=== PATIENT | male | born 1990 | race Caucasian/White ===

== ENCOUNTER 2017-01-02 12:29 | Inpatient (IN) | payer BC, OTHER ==
[~2017-01-02] VITALS: Ht 177.8 cm; Wt 68.5 kg
[2017-01-02] MEDS ORDERED: MoRPHine SULFATE 10 MG/ML CARP/VIAL IV STA (12:38)
--- NOTE | 2017-01-02 13:29 | DIAGNOSTIC IMAGING REPORT ---
LEFT TIBIA/FIBULA 2 VIEWS ROUTINE CLINICAL HISTORY: Left leg pain status post trauma COMPARISON: None. DISCUSSION: 4 views are provided for interpretation. The examination is somewhat limited from a technical standpoint. There is a mildly comminuted oblique/spiral fracture of the distal tibia. The distal fracture is laterally displaced x 8 mm. There is a comminuted fracture of the mid fibular shaft. IMPRESSION: 1. Mildly comminuted oblique/spiral fracture distal tibia 2. Comminuted fracture the mid fibular shaft Electronically signed by: Flo Rodriguez M.D. 01/02/2017 1:27 PM Dictated Date/Time: 01/02/2017 1:25 PM
[2017-01-02] MEDS ORDERED: NURSING VERBAL MED ORDER ONE ×2 (14:00→16:10)
[2017-01-02 14:26] LABS: HEMATOCRIT 45.6 % (42-52); MEAN CELL VOLUME 87.7 fL (80-100); MEAN CORPUSCULAR HEMOGLOBIN 31.3 pg (25-34); MEAN CORPUSCULAR HGB CONC 35.7 g/dl (32-36); MEAN PLATELET VOLUME 10.1 fL (7.4-10.4); PLATELET COUNT 265 K/uL (130-400); WHITE BLOOD COUNT 13.88 K/uL (4.8-10.8)
[2017-01-02] MEDS ORDERED: ONDANSETRON INJ 2 MG/ML 2 ML VIAL IV PRN (14:30)
[2017-01-02] MEDS ORDERED: HYDROmorphone INJ 1 MG/ML SYR IV PRN (14:30)
[2017-01-02 14:31] LABS: INR 1.1 (0.9-1.1)
[2017-01-02 14:33] LABS: BUN/CREATININE RATIO 10.4 (10-20); CALCIUM 9.2 mg/dl (8.5-10.1); CREATININE 1.1 mg/dl (0.60-1.40); POTASSIUM 3.2 mmol/L (3.5-5.1)
--- NOTE | 2017-01-02 14:48 | EMERGENCY ROOM VISIT NOTE ---
History Report prepared by Scott: Luzmaria Coley Under the Supervision of: Dr. Kieran Montgomery D.O. First contact with patient: 12:37 Chief Complaint: LEG PAIN,LEG INJURY Stated Complaint: LEG PAIN History of Present Illness The patient is a 26 year old male who presents to the Emergency Room with complaints of persistent left leg pain which started [employer]. The patient currently rates his discomfort as a 10/10. He reports that he was running outside when he encountered some ice. He describes that his "foot stopped, but the rest of me kept going". Source of History: patient Onset: [employer] Position: leg (left) Symptom Intensity: 10/10 Timing: other (persistent) Review of Systems See HPI for pertinent positives & negatives. A total of 10 systems reviewed and were otherwise negative. Past Medical & Surgical Medical Problems: (1) No Known Active Medical Problems Family History Patient reports no known family medical history. Social History Smoking Status: Never Smoker Marital Status: single Occupation Status: employed Current/Historical Medications No Active Prescriptions or Reported Meds Allergies Coded Allergies: Cefaclor (Unverified Allergy, Unknown, unkown, 01/02/17) Sulfamethoxazole w/Trimethoprim (Unverified Allergy, Unknown, unkown, 01/02) Physical Exam Vital Signs Date Time Temp Pulse Resp B/P Pulse Ox O2 Delivery O2 Flow Rate FiO2 01/02/17 14:32 83 18 138/76 100 Room Air 01/02/17 12:32 36.4 93 20 140/102 94 Room Air Physical Exam CONSTITUTIONAL/VITAL SIGNS: Reviewed / noted above. GENERAL: Non-toxic in appearance. INTEGUMENTARY: Warm, dry, and [place]. HEAD: Normocephalic. EYES: without scleral icterus or trauma. ENT/OROPHARYNX: clear and moist. LYMPHADENOPATHY/NECK: Is supple without lymphadenopathy or meningismus. RESPIRATORY: Lungs clear and equal. CARDIOVASCULAR: Regular rate and rhythm. GI/ABDOMEN: Soft and nontender. No organomegaly or pulsatile mass. No rebound or guarding. Normal bowel sounds. EXTREMITIES: Warm and well perfused. Mild deformity to left mid tibial region. No lacerations. Distally neurovascularly intact. BACK: No CVA tenderness. NEUROLOGICAL: Intact without focal deficits. PSYCHIATRIC: normal affect. MUSCULOSKELETAL: Normally developed with good muscle tone. Medical Decision & Procedures ER Provider Diagnostic Interpretation: X ray results and stated below per my interpretation and radiology interpretation. LEFT TIBIA/FIBULA 2 VIEWS ROUTINE CLINICAL HISTORY: Left leg pain status post trauma COMPARISON: None. DISCUSSION: 4 views are provided for interpretation. The examination is somewhat limited from a technical standpoint. There is a mildly comminuted oblique/spiral fracture of the distal tibia. The distal fracture is laterally displaced x 8 mm. There is a comminuted fracture of the mid fibular shaft. IMPRESSION: 1. Mildly comminuted oblique/spiral fracture distal tibia 2. Comminuted fracture the mid fibular shaft Electronically signed by: Flo Rodriguez M.D. 01/02/2017 1:27 PM Dictated Date/Time: 01/02/2017 1:25 PM Laboratory Results 01/02/17 12:40 01/02/17 12:40 Test 01/02/17 12:40 Red Blood Count 5.20 M/uL (4.7-6.1) Mean Corpuscular Volume 87.7 fL (80-100) Mean Corpuscular Hemoglobin 31.3 pg (25-34) Mean Corpuscular Hemoglobin Concent 35.7 g/dl (32-36) RDW Standard Deviation 39.5 fL (36.4-46.3) RDW Coefficient of Variation 12.2 % (11.5-14.5) Mean Platelet Volume 10.1 fL (7.4-10.4) Prothrombin Time 12.0 SECONDS (9.0-12.0) Prothromb Time International Ratio 1.1 (0.9-1.1) Anion Gap 13.0 mmol/L (3-11) Est Creatinine Clear Calc Drug Dose 96.9 ml/min Estimated GFR () 105.3 Estimated GFR (Non- 90.9 BUN/Creatinine Ratio 10.4 (10-20) Calcium Level 9.2 mg/dl (8.5-10.1) Medications Administered Medications (Trade) Dose Ordered Sig/Mary Route Start Time Stop Time Status Last Admin Dose Admin Morphine Sulfate (MoRPHine SULFATE INJ) 6 mg NOW STAT IV 01/02/17 12:38 01/02/17 12:40 DC 01/02/17 12:51 6 MG ED Course 1236: Previous medical records were reviewed. The patient was evaluated in room A3. A complete history and physical examination was performed. 1238: Morphine Sulfate 6 mg IV. 1336: I discussed the patients case with Dr. Flores, [facility] - orthopedic surgeon. The patient will be evaluated for further management. 1340: I reevaluated the patient. I discussed the results and treatment plan with him. He expressed understanding and agreement. He will be evaluated for further management. Medical Decision Differential diagnosis: Etiologies such as fracture, dislocation, neurovascular compromise, compartment syndrome, soft tissue injury, as well as others were entertained. This is a 26-year-old male who presents to the ED with a chief complaint of a left leg fracture. The patient states that he was running and slipped on the ice and then his foot caught solid ground and he suddenly heard a pop and pain in his left leg. He presented via personal vehicle. The patient has discomfort in the left leg. He has no other injuries. He is neurovascularly intact distally. There is no obvious open wounds. X-ray shows a tib-fib fracture that is mildly displaced and comminuted as well as spiral fracture. The patient was splinted with a posterior splint and a stirrup splint. The patient will be seen by Dr. Flores from orthopedics. The patient is being admitted for inpatient care. Consults Time Called: 1322 Consulting Physician: Dr. Flores, [facility] - orthopedic surgeon Returned Call: [phone] I discussed the patients case with him. The patient will be evaluated for further management. Impression Primary Impression: Tibia/fibula fracture, shaft Scribe Attestation The scribe's documentation has been prepared under my direction and personally reviewed by me in its entirety. I confirm that the note above accurately reflects all work, treatment, procedures, and medical decision making performed by me. Departure Information Dispostion Being Evaluated By Surgeon Prescriptions No Active Prescriptions or Reported Meds Referrals No Doctor, Assigned (PCP) Patient Instructions [facility]
[2017-01-02 15:00] VITALS: Ht 177.8 cm; Wt 68.5 kg
[2017-01-02] MEDS: OXYCODONE/ACETAMINOPHEN 5-325 TAB PO PRN ×2 (15:01→22:34)
[2017-01-02 16:30] VITALS: BP 126/74; PULSE 69; TEMP 36.4; O2SAT 91
[2017-01-02] MEDS: D5W AND 1/2NSS 1,000 ML IV SCH ×2 (16:33→23:24)
[2017-01-02 17:02] LABS: URINE APPEARANCE CLEAR (CLEAR); URINE BILIRUBIN NEG (NEG); URINE COLOR YELLOW; URINE NITRITE NEG (NEG); URINE PH 6.5 (4.5-7.5); URINE SPECIFIC GRAVITY 1.015 (1.000-1.030); UROBILINOGEN NEG (NEG)
[2017-01-02 17:05] LABS: MANUAL MICROSCOPIC REQUIRED? NO; REVIEW REQ? NO
--- NOTE | 2017-01-02 17:50 | DIAGNOSTIC IMAGING REPORT ---
CT LEFT LOWER LEG NO CONTRAST CT DOSE: 476.88 mGy.cm CLINICAL HISTORY: Fracture tibia and fibula TECHNIQUE: Helical images were acquired in the transverse plane. Sagittal and coronal reformatted images were acquired COMPARISON STUDY: Conventional radiographic study dated 01/02/2017 FINDINGS: There is a comminuted oblique fracture of the distal tibia 7 cm proximal to the tibial plafond. The distal fragment is posterior displaced x 11 mm, and laterally displaced x 10 mm. There is a chip fracture involving the lateral corner of the tibial plafond. There is a nondisplaced fracture involving the posterior malleolus. The ankle mortise appears intact. There is a comminuted fracture of the mid fibular shaft. There is an 8 cm butterfly fragment which is posteriorly displaced x 7 mm. IMPRESSION: 1. Comminuted oblique fracture of the distal tibia. 2. Chip fracture involving the lateral corner the tibial plafond 3. Nondisplaced hairline fracture involving the posterior malleolus the distal tibia 4. Comminuted fracture of the mid fibular shaft. Electronically signed by: Flo Rodriguez M.D. 01/02/2017 5:48 PM Dictated Date/Time: 01/02/2017 5:43 PM
[2017-01-02 18:18] VITALS: O2SAT 91
[2017-01-02] MEDS: HYDROmorphone INJ 1 MG/ML SYR IV PRN (20:17)
[2017-01-02] MEDS: DOCUSATE SODIUM 100 MG CAP PO SCH (20:39)
[2017-01-02 23:14] VITALS: BP 130/78; PULSE 59; TEMP 36.7; O2SAT 98
[2017-01-02] MEDS: [UNRECOGNIZED DRUG - REMARK] SCH (23:25)
[2017-01-03] VITALS (9 sets, daily range): BP systolic 134–146; BP diastolic 73–86; PULSE 52–74; TEMP 36.4–37.1; O2SAT 95–99
[2017-01-03] MEDS: HYDROmorphone INJ 1 MG/ML SYR IV PRN ×7 (03:23→13:32)
[2017-01-03] MEDS: [UNRECOGNIZED DRUG - REMARK] SCH (08:00)
--- NOTE | 2017-01-03 08:57 | HISTORY & PHYSICAL EXAMINATION ---
DATE OF ADMISSION: 01/02/2017 SUBJECTIVE CHIEF COMPLAINT: Left lower leg pain. HISTORY OF PRESENT ILLNESS: This is a patient who was out for run yesterday. When he came in contact with some ice, he tried stopping; however, he had a fall. He has significant pain within the left lower extremity. He was brought to [facility] ER, where x-rays were performed. He was noted to have a distal tibia shaft fracture as well as a comminuted midshaft fibular fracture. He was placed into a splint and he was admitted for surgical evaluation today. PAST MEDICAL HISTORY: None. PAST SURGICAL HISTORY: None. HOME MEDICATIONS: None. FAMILY HISTORY: Noncontributory. SOCIAL HISTORY: The patient is single. He is doing graduate, worked at [employer]. He is a nonsmoker. ALLERGIES: BACTRIM AND CEFACLOR. OBJECTIVE PHYSICAL EXAMINATION: GENERAL: The patient is alert and oriented x3. He is in no acute distress. He is lying fairly comfortable in bed with his left lower extremity elevated in a splint. HEART: Has a regular rhythm and rate without murmurs. Distal cardiovascular exam, cap refill is less than 2 seconds, left lower extremity. LUNGS: Clear to auscultation bilaterally. LYMPHATIC: No evidence of any swollen lymph nodes. MUSCULOSKELETAL: The patient is nonweightbearing on the left lower extremity. As previously noted, he is lying comfortably in bed. No range of motion or strength testing was performed because of a known fracture and the patient being in a splint. Splint was kept in place throughout the exam. NEUROLOGIC: Sensation is normal and intact distally at the left lower extremity toes to light palpation. X-RAY EXAM: Multiple views of the left tib-fib demonstrate a comminuted and displaced distal tibial shaft fracture as well as a comminuted displaced fibular shaft fracture. CT of the left lower extremity demonstrates a comminuted and displaced distal one-third tibia fracture. The fracture appears to be extraarticular. There may be a small avulsion at the lateral aspect of the distal tibia. There is also a displaced comminuted midshaft fibular fracture. ASSESSMENT AND DIAGNOSES: Left displaced tib-fib fracture, both are comminuted and fractures are extraarticular. PLAN: Above assessment was discussed with the patient. At this time, it was recommended the patient undergo an ORIF of left tibial shaft fracture with intramedullary nail and closed treatment of the fibular fracture. All potential risks, benefits, complications, alternatives and rehab have been discussed with the patient. At this time, he wishes to proceed with the surgery as indicated. The patient was consented this morning and it was discussed with the patient that he will be on aspirin 81 mg twice a day over the next 6-8 weeks for DVT prophylaxis and we will continue to follow the patient during his inpatient stay for nonweightbearing on the left lower extremity as well as pain control until he was able to be discharged home. MARK
[2017-01-03] MEDS: DOCUSATE SODIUM 100 MG CAP PO SCH ×2 (09:00→20:47)
[2017-01-03] MEDS ORDERED: BACITRACIN 50000 UNIT VIAL ONE (09:25)
[2017-01-03] MEDS ORDERED: BUPIVACAINE/EPINEPHRINE 0.5% MPF 1:200,000 30 ML VIAL ONE (09:25)
[2017-01-03] MEDS ORDERED: ONDANSETRON INJ 2 MG/ML 2 ML VIAL ONE ×2 (09:54→12:23)
[2017-01-03] MEDS ORDERED: DEXAMETHASONE SOD INJ 4 MG/ML VIAL ONE (09:54)
[2017-01-03] MEDS ORDERED: FENTANYL CITRATE INJ 50 MCG/1 ML 2 ML VIAL ONE ×2 (09:54→12:20)
[2017-01-03] MEDS ORDERED: PROPOFOL IV EMULSION 10 MG/ML 20 ML VIAL IV ONE (09:54)
[2017-01-03] MEDS ORDERED: MIDAZOLAM HCL 1 MG/ML 2ML VIAL ONE (09:54)
[2017-01-03] MEDS ORDERED: LIDOCAINE HCL 2% 2 ML VIAL (20MG/ML) ONE (09:54)
[2017-01-03] MEDS ORDERED: CISATRACURIUM BESYLATE IV SOLN 2 MG/ML 10 ML VIAL ONE (09:54)
[2017-01-03] MEDS ORDERED: CEFAZOLIN SOD 1 GM VIAL ONE ×2 (10:25→10:27)
[2017-01-03] MEDS ORDERED: HYDROmorphone INJ 2 MG/ML SYR/VIAL ONE ×2 (11:08→13:17)
[2017-01-03] MEDS ORDERED: NALOXONE HCL 0.4 MG/1 ML VIAL/CARP IV PRN (12:30)
[2017-01-03] MEDS ORDERED: EpHEDrine SULFATE INJ 50 MG/ML AMP IV PRN (12:30)
[2017-01-03] MEDS ORDERED: FLUMAZENIL 0.1 MG/1 ML 10 ML VIAL IV PRN (12:30)
[2017-01-03] MEDS ORDERED: ATROPINE SULFATE 0.1 MG/ML 5ML SYR IV PRN (12:30)
[2017-01-03] MEDS ORDERED: PROMETHAZINE HCL INJ 12.5 MG in SODIUM CHLORIDE 0.9% 50ML 50 ML IV PRN (12:30)
[2017-01-03] MEDS ORDERED: ONDANSETRON INJ 2 MG/ML 2 ML VIAL IV PRN ×2 (12:30→13:15)
--- NOTE | 2017-01-03 12:49 | [facility] Post Operative Brief Note ---
Immediate Operative Summary Operative Date Jan 03, 2017. Pre-Operative Diagnosis Left displaced distal one-third tib-fib fracture, both are comminuted and fractures are extraarticular. Post-Operative Diagnosis Left displaced distal one-third tib-fib fracture, both are comminuted and fractures are extraarticular. Procedure(s) Performed Open reduction internal fixation left tibial shaft fracture with intramedullary nail, Synthes. Closed treatment left fibular fracture with application splint. Surgeon Dr. Flores [employer] Surgeon(s) Anny Vizcaino PA-C Estimated Blood Loss 50 ML Findings See dict Specimens None Drains None Anesthesia GLMA Complication(s) None Disposition Recovery Room / PACU
--- NOTE | 2017-01-03 12:52 | DIAGNOSTIC IMAGING REPORT ---
INTRAOPERATIVE RADIOGRAPHS CLINICAL HISTORY: Open reduction and internal fixation of the left tibia. Fluoroscopy time: 264 seconds. FINDINGS: 5 spot fluoroscopic views of the left tibia are presented. An intertrochanteric nail transfixes a spiral fracture through the distal tibial shaft. There is mild persistent offset of the fragments. 2 cortical lag screws transfix the proximal end of the nail and 3 cortical-like screws transfix the distal end of the nail. A spiral fracture is also seen in the mid fibular shaft. Overlying soft tissue edema is noted. IMPRESSION: Intraoperative images from open reduction and internal fixation of the left tibia as above. Electronically signed by: Brian Mendoza M.D. 01/03/2017 12:51 PM Dictated Date/Time: 01/03/2017 12:49 PM
[2017-01-03] MEDS ORDERED: GLYCOPYRROLATE INJ 0.2 MG/ML VIAL ONE (12:53)
[2017-01-03] MEDS ORDERED: NEOSTIGMINE METHYLSULFATE 5 MG/5 ML SYR ONE (12:53)
[2017-01-03] MEDS ORDERED: HYDROmorphone INJ 0.5 MG/0.5 ML SYR IV PRN (13:00)
[2017-01-03] MEDS ORDERED: NO NSAIDS SCH (13:15)
[2017-01-03] MEDS ORDERED: SOD PHOSPHATE/SOD BIPHOSPHATE ENEMA 132 ML BTL PR PRN (13:15)
[2017-01-03] MEDS ORDERED: BISACODYL 10 MG SUPP PR PRN (13:15)
[2017-01-03] MEDS ORDERED: ZOLPIDEM TARTRATE 5 MG TAB PO PRN (13:15)
[2017-01-03] MEDS ORDERED: ALUMINUM/MAGNESIUM/SIMETH (MAALOX MAX) 30 ML UDC PO PRN (13:15)
[2017-01-03] MEDS ORDERED: MoRPHine SULFATE 2 MG/ML CARP IV PRN (13:15)
[2017-01-03] MEDS ORDERED: MAGNESIUM HYDROXIDE SUSP 30 ML UDC PO PRN (13:15)
[2017-01-03] MEDS ORDERED: OXYCODONE HCL IR 5 MG TAB (IMMEDIATE RELEASE) PO PRN (13:15)
--- NOTE | 2017-01-03 13:50 | DIAGNOSTIC IMAGING REPORT ---
LEFT TIBIA AND FIBULA 2 VIEWS CLINICAL HISTORY: Postoperative examination. FINDINGS: AP and lateral portable views of the left tibia and fibula are compared to study dated 01/02/2017. The skeletal structures are well mineralized. The examination is performed through a splint, obscuring fine bony detail. An Intramedullary nail transfixes a comminuted spiral fracture of the distal tibia. There is approximately 5 mm of lateral offset of the distal fragments. 2 cortical lag screws transfix the proximal aspect of the nail and 3 cortical lag screws transfix the distal aspect of the nail. A comminuted and distracted spiral fracture of the proximal to mid fibula is again noted. Overlying soft tissue edema is identified. Foci of subcutaneous gas are likely related to recent surgery. The knee and ankle joints are grossly maintained. IMPRESSION: 1. Postoperative changes from open reduction and internal fixation of a left tibial fracture as above. 2. A comminuted spiral fracture of the proximal mid fibular shaft with distracted fragments is again noted. Electronically signed by: Brian Mendoza M.D. 01/03/2017 1:49 PM Dictated Date/Time: 01/03/2017 1:46 PM
--- NOTE | 2017-01-03 13:52 | Anesthesiology Progress Note ---
Anesthesia Post Op Note Date & Time Jan 03, 2017 at 13:52 Vital Signs Pain Intensity: 4 Vital Signs Past 12 Hours Date Time Temp Pulse Resp B/P Pulse Ox O2 Delivery O2 Flow Rate FiO2 01/03/17 13:45 37.6 68 16 158/79 99 Nasal Cannula 2 01/03/17 13:35 63 16 150/87 99 Nasal Cannula 2 01/03/17 13:25 62 16 165/90 99 Nasal Cannula 2 01/03/17 13:15 73 16 146/83 100 Mask 10 01/03/17 13:05 73 16 153/73 99 Mask 10 01/03/17 12:59 37.2 84 14 148/83 99 Mask 10 01/03/17 07:45 Room Air 01/03/17 07:16 36.6 60 16 134/73 96 Room Air Notes Mental Status: alert / awake / arousable, participated in evaluation Pt Amnestic to Procedure: Yes Nausea / Vomiting: adequately controlled Pain: adequately controlled Airway Patency, RR, SpO2: stable & adequate BP & HR: stable & adequate Hydration State: stable & adequate Anesthetic Complications: no major complications apparent
[2017-01-03] MEDS: D5W AND 1/2NSS + 20MEQ KCL 1,000 ML IV SCH ×2 (14:16→22:44)
[2017-01-03] MEDS: ACETAMINOPHEN 500 MG TAB PO SCH ×2 (15:30→23:47)
[2017-01-03] MEDS: CEFAZOLIN IV 1,000 MG in DEXTROSE 5% 50ML 50 ML IV SCH (17:31)
[2017-01-03] MEDS: ASPIRIN 81 MG ECTAB PO SCH (20:47)
[2017-01-03] MEDS ORDERED: SENNA 8.6 MG TAB PO SCH (21:00)
[2017-01-04] MEDS: CEFAZOLIN IV 1,000 MG in DEXTROSE 5% 50ML 50 ML IV SCH (01:48)
[2017-01-04 04:00] VITALS: BP 136/64; PULSE 84; TEMP 36.7; O2SAT 94
[2017-01-04 05:31] LABS: HEMATOCRIT 38.7 % (42-52); MEAN CORPUSCULAR HEMOGLOBIN 30.4 pg (25-34); MEAN CORPUSCULAR HGB CONC 35.4 g/dl (32-36); MEAN PLATELET VOLUME 9.4 fL (7.4-10.4); PLATELET COUNT 209 K/uL (130-400)
[2017-01-04 06:02] LABS: BUN/CREATININE RATIO 7.1 (10-20); CALCIUM 8.3 mg/dl (8.5-10.1); POTASSIUM 3.8 mmol/L (3.5-5.1)
--- NOTE | 2017-01-04 07:11 | OPERATIVE REPORT ---
DATE OF OPERATION: 01/03/2017 PREOPERATIVE DIAGNOSIS: Left displaced distal one-third comminuted tibia and fibular fracture, extra-articular. POSTOPERATIVE DIAGNOSIS: Same. PROCEDURES: 1. Intramedullary nailing, ORIF of left tibia fracture, Synthes tibial nail. 2. Closed treatment of left fibula fracture with application of splint. SURGEON: Dr. Flores. CAB DRIVER: Min Vizcaino PA-C who was present for patient positioning, sterile prep and drape, management of retractors and instruments. He was present through the critical portions of the case including wound closure, application of sterile dressing and transport of the patient to recovery. ANESTHESIA: General LMA. SPECIMENS: None. DRAINS: None. COMPLICATIONS: None. BLOOD LOSS: 50 mL. 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 He slipped on some ice and wrenched and twisted his left leg severely. He felt a snap and immediate pain, unable to ambulate, noticed deformity of the limb and then transported to [facility], at which point he was x-rayed and evaluated and noted to have right distal one-third closed comminuted tibia and fibula fracture. He was then admitted to orthopedics for definitive care and management as indicated. All potential risks, benefits, complications, alternatives, rehab, potential for incomplete relief of symptoms, need for further surgery, DVT, PE, , persistent pain, swelling, scarring, weakness, neurovascular injury, wound complications, hardware failure, bone fracture, nonunion or malunion was discussed with the patient. The patient decided to proceed with the procedure as indicated. PROCEDURE IN DETAIL: The patient was taken to the operative suite, placed supine on the operating room table. After review of the consent and identification of proper operative site, the patient was anesthetized, LMA was placed. Tourniquet was placed high on the left thigh over cast padding. Left lower extremity was then sterilely prepped and draped in usual fashion, elevated and exsanguinated with Esmarch bandage and tourniquet inflated to 300 mmHg. Next, a 15 blade scalpel was used to make an incision in the anterior aspect of the left knee. The incision was deepened through subcutaneous tissue. Meticulous hemostasis was achieved with electrocautery. Full thickness skin flaps were developed. The paratenon of the patellar tendon was incised in line with skin incision, retracted, and protected. Next, a medial parapatellar incision was made and the patella was then retracted laterally. Next, the fat pad was then incised and the proximal anterior lip of the tibia was identified. Next, the guidepin was placed under live fluoroscopic assistance into the proximal one-third of the tibia. Next, an awl was used to open the proximal tibia and then a ball-tipped guidewire was then carefully bent with a plier and then placed in a T-handle vanessa and then used to pass the guidewire across the fracture site into the distal fragment in a center-center position on AP and lateral projections with the C-arm. Next, sequential reaming was performed up to a size 11 through both portions of the fracture, 11.5 to the level of proximal isthmus and then a 12.5 reamer was passed into the tibial plateau region. Next, the wound and tibial shaft was then copiously irrigated with sterile normal saline and bacitracin. Next, the 11 mm x 345 mm Synthes cannulated titanium tibial nail was then passed across the fracture to stabilize it. Of note, a large bone reduction tenaculum forceps was used to hold the fracture reduced at the fracture site via 2 small stab incisions, medial and lateral with a 15 blade scalpel. This was performed prior to the initiation of reaming. The screw was well seated on AP and lateral projections in the center-center position. The anterior proximal targeting alignment guide was then placed onto the insertion guide. Next, stab incisions were made at the proximal medial aspect of the tibia and then locking screws were drilled and then passed across the proximal tibia. Next, the targeting alignment guide was then removed and a 15 mm nail plug was placed proximally. Next, using a freehand technique, live fluoroscopic images were used to localize for stab incisions in the medial aspect of the distal tibia, for placement of 2 medial to lateral locking screws and then 1 oblique anteromedial to posterolateral locking screw. Next, final x-rays obtained, noting near anatomic reduction of the tibia and stable alignment and rotation of the fibula. Next, all wounds were then copiously irrigated with sterile normal saline. The deep capsule was closed using several #1 Vicryl sutures. The medial retinaculum was then closed using #1 Vicryl and the paratenon was then closed using 3-0 Vicryl, followed by closure of the skin with buried interrupted 2-0 Vicryl in all skin incisions and then the skin was then completely closed with 4-0 nylon sutures. Next, a sterile compressive dressing was applied as well as a well-padded plaster splint to help stabilize soft tissue and also to treat the closed fracture of the fibula. The tourniquet was released. The patient was awakened and taken to recovery in stable condition. I attest to the content of the Intraoperative Record and any orders documented therein. Any exceptio ns are noted below.
[2017-01-04 07:17] VITALS: BP 135/74; PULSE 67; TEMP 36.6; O2SAT 94
--- NOTE | 2017-01-04 07:42 | Orthopedic Progress Note ---
Orthopedic Progress Note Date of Service Jan 04, 2017. Subjective Post OP Day: 1 Reports: feeling well, pain controlled w PO medications, Denies: complaints Additional Notes: States the left leg is feeling surprisingly better from prior to surgery. The sensation is back in his leg and he can move his toes. Some discomfort near the knee but he feels it's more positional with the leg being elevated. Objective calves soft nontender, N/V intact, splint C/D/I, capillary refill less than 2 sec., dressing C/D/I, A&O x3, toes mobile Date Time Temp Pulse Resp B/P Pulse Ox O2 Delivery O2 Flow Rate FiO2 01/04/17 07:17 36.6 67 18 135/74 94 Room Air 01/04/17 04:00 36.7 84 16 136/64 94 Room Air 01/03/17 23:45 Room Air 01/03/17 22:44 36.4 62 16 142/81 98 Room Air 01/03/17 20:56 36.5 68 16 136/82 97 Room Air 01/03/17 17:05 52 16 138/86 95 Room Air 01/03/17 16:23 36.5 74 16 137/76 99 Nasal Cannula 2.0 01/03/17 15:45 97 Nasal Cannula 2.0 01/03/17 15:14 36.7 74 16 143/81 97 Nasal Cannula 2.0 01/03/17 14:48 36.5 56 16 145/80 98 2.0 01/03/17 14:10 Nasal Cannula 2.0 01/03/17 14:10 37.1 67 16 146/75 99 Nasal Cannula 2.0 01/03/17 14:10 Nasal Cannula 2.0 01/03/17 13:55 37.6 74 16 147/87 98 Nasal Cannula 2 01/03/17 13:45 37.6 68 16 158/79 99 Nasal Cannula 2 01/03/17 13:35 63 16 150/87 99 Nasal Cannula 2 01/03/17 13:25 62 16 165/90 99 Nasal Cannula 2 01/03/17 13:15 73 16 146/83 100 Mask 10 01/03/17 13:05 73 16 153/73 99 Mask 10 01/03/17 12:59 37.2 84 14 148/83 99 Mask 10 01/03/17 07:45 Room Air Laboratory Results 24 Hours: Test 01/04/17 05:11 Hematocrit 38.7 % Hemoglobin 13.7 g/dL Assessment & Plan Assessment: POD #1 s/p 1. Intramedullary nailing, ORIF of left tibia fracture, Synthes tibial nail. 2. Closed treatment of left fibula fracture with application of splint Inhouse Planning Pain Management: Morphine, PO Tylenol, Oxy IR DVT Prophylaxis: ASA Discharge Planning Discharge Planning: home Pain Management: PO Tylenol, Oxy IR DVT Prophylaxis: ASA
[2017-01-04] MEDS ORDERED: RXC5 PO (07:46)
[2017-01-04] MEDS ORDERED: ONDA8TAB6 PO (07:46)
[2017-01-04] MEDS ORDERED: ASPEC81 PO (07:46)
[2017-01-04] MEDS ORDERED: ACET-1138 PO (07:46)
--- NOTE | 2017-01-04 07:49 | Discharge Instructions ---
Discharge Instructions Date of Service Jan 04, 2017. Admission Reason for Admission: Left Tib/Fib Fx Discharge Discharge Diagnosis / Problem: left tibial shaft and fibular shaft fractures Discharge Goals Goal(s): Decrease discomfort, Improve function Activity Recommendations Activity Limitations: as noted below Lifting Limitations: until after follow-up appointment Exercise/Sports Limitations: until after follow-up appointment May Resume Sexual Activity: when tolerated Shower/Bathe: keep incision dry (Keep dressing in place until follow up.) Driving or Machine Use: When cleared by Dr. Vidal's office. Weightbearing Status: Left non-weightbearing . Instructions / Follow-Up Instructions / Follow-Up ACTIVITY RECOMMENDATIONS: Limitations: No weight bearing to affected limb at all times. SPECIAL CARE INSTRUCTIONS: * Some drainage onto the dressing is normal and is no cause for alarm. * Some swelling is natural especially after walking. * When resting, keep your foot elevated above the level of your heart. * Call [facility] if you notice: -Increased drainage -Fever over 101 degrees F -Severe constant pain BANDAGE: * Leave bandage/cast in place unless otherwise directed. * Keep bandage/cast dry at all times. FOLLOW UP VISIT WITH DR. VIDAL If appointment is not already scheduled: Please call [facility] after you get home today to schedule a follow-up appointment for Wednesday, 01.08.[address] Vidal's office at . Current Hospital Diet Patient's current hospital diet: Regular Diet Discharge Diet Recommended Diet: Regular Diet Procedures Procedures Performed: Open reduction internal fixation left tibial shaft fracture with intramedullary nail, Synthes. Closed treatment left fibular fracture with application splint. Pending Studies Studies pending at discharge: no Medical Emergencies . Who to Call and When: Medical Emergencies: If at any time you feel your situation is an emergency, please call 911 immediately. . Non-Emergent Contact Non-Emergency issues call your: Surgeon Call Non-Emergent contact if: temperature is above 101, your pain is not controlled, your pain is worsening . "Provider Documentation" section prepared by Min Vizcaino. VTE Core Measure Inpt VTE Proph given/why not?: Other Anticoagulation (Aspirin)
[2017-01-04] MEDS: ACETAMINOPHEN 500 MG TAB PO SCH (08:25)
[2017-01-04] MEDS: DOCUSATE SODIUM 100 MG CAP PO SCH (08:25)
[2017-01-04] MEDS: ASPIRIN 81 MG ECTAB PO SCH (08:25)
[2017-01-04] MEDS: D5W AND 1/2NSS + 20MEQ KCL 1,000 ML IV SCH (08:26)
[2017-01-04] MEDS ORDERED: MULTIVITAMIN TAB PO SCH (09:00)
[2017-01-04 09:16] VITALS: BP 135/74; PULSE 67; TEMP 36.6; O2SAT 94
[2017-01-04 09:20] VITALS: BP 138/83; PULSE 77; O2SAT 98
[2017-01-04 11:21] VITALS: BP 128/82; PULSE 58; TEMP 36.8; O2SAT 99
--- NOTE | 2017-01-17 21:13 | Discharge Summary ---
Orthopedic Discharge Summary Admission Date/Reason Jan 02, 2017 at 17:01 Left Tib/Fib Fx. Discharge Date/Disposition Jan 04, 2017 Home Diagnosis Principal Diagnosis: Left tib/fib fx Procedure(s) Performed ORIF left tibial shaft fx with IM nail, closed tx left fibular shaft fx. Medication Reconciliation New Medications: Ondansetron Hcl (Zofran) 8 Mg Tab 8 MG PO Q8 PRN for Nausea, #20 TAB Acetaminophen (Tylenol Extra Strength) 500 Mg Tab 1000 MG PO Q8H, #90 TAB Aspirin (Aspirin EC Low Dose) 81 Mg Ectab 81 MG PO Q12 for 42 Days Oxycodone HCl (Oxycodone HCl) 5 Mg Tab 5-10 MG PO Q4H PRN for Pain, #60 TAB Admission Physical Exam As per Admitting History & Physical. Hospital Course The patient was admitted on 3.09.10 after a fall while running. On 3.10.10, the patient underwent an ORIF of the left tib/fib fx. He was kept until POD #1 to follow pain control and continue to observe his NV status. The patient was doing well on POD #1 and was d/c'd home. Discharge Instructions Please refer to the electronic Patient Visit Report (Discharge Instructions) for additional information. ACTIVITY RECOMMENDATIONS: Limitations: No weight bearing to affected limb at all times. SPECIAL CARE INSTRUCTIONS: * Some drainage onto the dressing is normal and is no cause for alarm. * Some swelling is natural especially after walking. * When resting, keep your foot elevated above the level of your heart. * Call [facility] if you notice: -Increased drainage -Fever over 101 degrees F -Severe constant pain BANDAGE: * Leave bandage/cast in place unless otherwise directed. * Keep bandage/cast dry at all times. FOLLOW UP VISIT WITH DR. VIDAL If appointment is not already scheduled: Please call [facility] after you get home today to schedule a follow-up appointment for [address] Vidal at .
== END 2017-01-04 13:32 | disposition home health service (06) | DRG 494 ==
LOC: ENRESERVDT → ENRESERVTM → C.EDA 12:30 → C.3E 17:01
PROVIDERS: ADMIT Orthopaedic Surgery Sports Medicine; ATTEND Orthopaedic Surgery Sports Medicine
PROC: 0QSH06Z Reposition Left Tibia with Intramedullary Internal Fixation Device, Open Approach (ICD-10-PCS; principal; 2017-01-02)
PROC: 0QSK06Z Reposition Left Fibula with Intramedullary Internal Fixation Device, Open Approach (ICD-10-PCS; 2017-01-02)
DX: S82.302A Unspecified fracture of lower end of left tibia, initial encounter for closed fracture (principal); S82.492A Other fracture of shaft of left fibula, initial encounter for closed fracture; W00.0XXA Fall on same level due to ice and snow, initial encounter; Y93.02 Activity, running